=== PATIENT | male | born 1980 | race Caucasian/White ===

== ENCOUNTER 2018-07-13 17:51 | Emergency (ER) | payer MEDICAID ==
[~2018-07-13] VITALS: Ht 180.3 cm; Wt 79.4 kg
[2018-07-13] MEDS ORDERED: CHLORDIAZEPOXID25 MG PO (18:24)
[2018-07-13] MEDS ORDERED: IBUPROFEN800 MG PO (18:25)
--- OUTSIDE RECORDS SUMMARY | 2018-07-13 20:08 | XMS ---
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 E.D. VISIT COUNT (12 MO.) 3 [facility] 3 [facility] 1 [facility] TOTAL 7 NOTE: Visits indicate total known visits. ED/UCC VISIT TRACKING (12 MO.) 07/13/2018 17:[facility] COMPLAINT: - ABD PAIN, ANXIETY 07/05/2018 19:57 [facility] TYPE: Emergency DIAGNOSES: - Residual foreign body in soft tissue - "Piece of metal in right foot" - Foot Pain 07/02/2018 05:49 [facility] [place] TYPE: Emergency DIAGNOSES: - Foot Pain - Superficial foreign body, right great toe, initial encounter - Pain/Swelling Right Foot 03/27/2018 16:23 [facility] [place] TYPE: Emergency DIAGNOSES: - Leg Pain - left leg infection - Cellulitis of left lower limb 03/16/2018 17:59 [facility] [place] TYPE: Emergency DIAGNOSES: - Wound Infection - issue with l. leg - Other psychoactive substance abuse, uncomplicated - Cellulitis of left lower limb 03/02/2018 11:20 [facility] TYPE: Emergency DIAGNOSES: - Wound Check - Cellulitis of left lower limb - LEFT LEG SWELLING 02/27/2018 12:13 [facility] TYPE: Emergency DIAGNOSES: - Lymphangitis - Abscess - Insect Bite - Cellulitis of left lower limb INPATIENT VISIT TRACKING (12 MO.) 03/16/2018 17:59 [facility] TYPE: General Medicine DIAGNOSES: - Cellulitis of left lower limb - Other psychoactive substance abuse, uncomplicated 03/02/2018 19:12 [facility] TYPE: Inpatient DIAGNOSES: - Homelessness - Other stimulant abuse, uncomplicated - Cellulitis of left lower limb - Sepsis - Sepsis due to streptococcus, group A [id number]
== END 2018-07-13 19:56 | disposition home or self-care (01) ==
LOC: ED 17:51
DX: R10.13 Epigastric pain (principal); F10.239 Alcohol dependence with withdrawal, unspecified; F17.200 Nicotine dependence, unspecified, uncomplicated
CPT/HCPCS: 80053; 81001; 82150; 83690; 85025; 96374; 96375; 99284-25; J2060; J2405